=== PATIENT | female | born 1945 | race Caucasian/White ===

== ENCOUNTER → 2016-03-29 | Outpatient (CLI) | payer MEDICARE, OTHER ==
[~2016-03-29] MED LIST: ARICEPT10 MG PO; ASPRIN; LISINOPRIL/HCTZ1 TA1 PO; NEXIUM 20MG CAP20 MG PO; VITAMIN D1000 IU PO
== END ==
LOC: COL.RAD 10:16
DX: R10.11 Right upper quadrant pain (principal); R10.31 Right lower quadrant pain; N39.0 Urinary tract infection, site not specified; R39.198 Other difficulties with micturition